=== PATIENT | female | born 2000 | race Caucasian/White ===

== ENCOUNTER 2022-10-26 23:45 | Emergency (ER) | payer BC, MEDICAID ==
[2022-10-26] MEDS ORDERED: Bupivacaine 0.5%/EPINEPHrine 1:200,000 30 ML SDV INJECT ONE (23:57)
== END 2022-10-27 01:13 | disposition home or self-care (01) ==
LOC: VM.ED 23:45
DX: S71.111A Laceration without foreign body, right thigh, initial encounter (principal); W45.8XXA Other foreign body or object entering through skin, initial encounter; Y92.009 Unspecified place in unspecified non-institutional (private) residence as the place of occurrence of the external cause
CPT/HCPCS: 12002; 99282; 99283; J3490